=== PATIENT | male | born 1965 | race Asian ===

== ENCOUNTER 2022-07-06 21:41 | Emergency (ER) | payer SELFPAY ==
[~2022-07-06] VITALS: Ht 165.1 cm; Wt 62.1 kg
[2022-07-07] MEDS ORDERED: AMOX TR-K CLV1 EAC1 PO (03:05)
[2022-07-07] MEDS ORDERED: ZITHROMAX250 MG PO (03:05)
[2022-07-07] MEDS ORDERED: METFORMIN HCL500 M2 PO (03:05)
[2022-07-07] MEDS ORDERED: REGLAN10 MG PO (03:05)
[2022-07-07 03:24] VITALS: BP 145/77
== END 2022-07-07 03:25 | disposition home or self-care (01) ==
LOC: ED 21:41
DX: R06.6 Hiccough (principal); I71.20 Thoracic aortic aneurysm, without rupture, unspecified; E11.9 Type 2 diabetes mellitus without complications; E11.65 Type 2 diabetes mellitus with hyperglycemia; J18.9 Pneumonia, unspecified organism
CPT/HCPCS: 36415; 71045; 71260; 74177; 80053; 83036; 83735; 84443; 85025; 85060; 96361; 96375; 99284-25; J2765; J7121; Q9967

== ENCOUNTER 2024-06-05 15:51 | Inpatient (IN) | payer OTHER ==
[~2024-06-05] VITALS: Ht 165.1 cm; Wt 64.0 kg
[~2024-06-05 15:51] MED LIST: AMOX TR-K CLV1 EAC1 PO; METFORMIN HCL500 M2 PO; REGLAN10 MG PO; ZITHROMAX250 MG PO
[2024-06-05 16:14] LABS: PH, VENOUS 7.381 (7.31-7.41)
[2024-06-05] MEDS ORDERED: IBLOOD GLUCOSE TEST STRIP 1 EA TEST XX ONE (16:15)
[2024-06-05 16:16] LABS: BASOPHILS 0.3 % (0-2); EOSINOPHILS 0.6 % (0-6); HEMATOCRIT 45.3 % (35.0-50.0); HEMOGLOBIN 14.5 g/dL (12.0-18.0); LYMPHOCYTES 25.5 % (24-44); MCH 20.3 (27-36); MCV 63.4 fl (81-99); MONOCYTES 7.3 % (0-12); NEUTROPHILS 66.3 % (39-80); PLATELET COUNT 156 K/uL (140-440); RBC 7.14 M/ul (4.3-5.7); RDW 14.5 (10.5-15.0)
[2024-06-05 16:24] LABS: INR 0.95 (0.80-1.30); PROTIME 12.3 Sec (11.2-14.2)
[2024-06-05 16:26] LABS: PARTIAL THROMBOPLASTIN TIME 25.8 Sec (22.9-41.3)
[2024-06-05 16:39] LABS: ALBUMIN 3.7 g/dL (3.4-5.0); ALBUMIN/GLOBULIN RATIO 0.93 (1.1-2.4); ANION GAP 12.3 (7-21); BILIRUBIN, TOTAL 0.4 mg/dL (0.2-1.0); BUN/CREATININE RATIO 12.94 (6.0-28.6); CALCIUM 8.9 mg/dL (8.5-10.1); CREATININE, SERUM 1.39 mg/dL (0.70-1.30); POTASSIUM 4.3 mmol/L (3.5-5.1); PROTEIN, TOTAL 7.7 g/dL (6.4-8.2)
[2024-06-05] MEDS ORDERED: CLOPIDOGREL BISULFATE 75 MG TAB PO ONE (17:15)
[2024-06-05] MEDS ORDERED: Insulin Regular, Human 100 UNIT/ML ML IV ONE (17:15)
[2024-06-05] MEDS ORDERED: ASPIRIN 81 MG CHEW PO ONE (17:15)
[2024-06-05] MEDS ORDERED: SODIUM CHLORIDE 0.9% 500 ML IV PRN (17:15)
[2024-06-05] MEDS ORDERED: DEXTROSE 50% 50 ML SYR IV PRN ×2 (17:45)
[2024-06-05] MEDS ORDERED: ACETAMINOPHEN 325 MG TAB PO PRN (17:45)
[2024-06-05] MEDS ORDERED: GLUCAGON,HUMAN RECOMBINANT 1 MG/ML VIAL SUB-Q PRN (17:45)
[2024-06-05] MEDS ORDERED: IBLOOD GLUCOSE TEST STRIP 1 EA TEST XX PRN (17:45)
[2024-06-05] MEDS ORDERED: DEXTROSE 5% 1,000 ML IV PRN (17:45)
[2024-06-05] MEDS ORDERED: AMOXICILLIN500 MG PO (17:48)
[2024-06-05 18:03] LABS: CHOLESTEROL/HDL RATIO 3.4
[2024-06-05 18:47] VITALS: BP 167/72
--- NOTE | 2024-06-05 18:58 | NUR ---
PT ARRIVES TO MED-SURG ROOM 111 VIA STRETCHER, ESCORTED BY DAPHNE RN, BEDSIDE REPORT RECEIVED. PT TO BED WITH SBA. VSS. TELE #[address] PT ORIENTED TO ROOM.
--- NOTE | 2024-06-05 19:08 | NUR ---
PT EATS TURKEY SANDWICK AND DRINKS APPLE JUICE, TOLERATES THIS WELL.
--- NOTE | 2024-06-05 19:26 | NUR ---
REPORT RECEIVED FROM DAY SHIFT RN. PT LYING IN BED ALERT AND ORIENTED. DENIES NEEDS. WHITE BOARD UPDATED. CALL LIGHT IN REACH. BED ALARM FOR SAFETY.
[2024-06-05 19:55] VITALS: BP 135/65
[2024-06-05 19:56] VITALS: BP 135/65
[2024-06-05] MEDS ORDERED: ATORVASTATIN 40 MG TAB PO SCH ×2 (20:15→22:22)
--- NOTE | 2024-06-05 20:23 | NUR ---
ADMISSION ASSESSMENT COMPLETE. SCHEDULED MEDS ADMIN PER EMAR. PT DENIES PAIN OR NAUSEA. DENIES NUMBNESS OR TINGLING AT THIS TIME. PT DOES REPORT SLIGHT BLURRED VISION IN BOTH EYES. 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 PT DENIES HEADACHE. NO SLURRED SPEECH OR FACIAL DROOP NOTED. TELE #[address] SR. HR 80'S. PT ORIENTED TO ROOM AND NURSE CALL LIGHT. DENIES QUESTIONS OR CONCERNS. BED ALARM FOR SAFETY. CALL LIGHT IN REACH.
[2024-06-05] MEDS ORDERED: INSULIN GLARGINE-YFGN 100 UNIT/ML ML SUB-Q SCH (21:00)
[2024-06-05] MEDS ORDERED: MELATONIN 3 MG TAB PO PRN (21:00)
[2024-06-05] MEDS ORDERED: IBLOOD GLUCOSE TEST STRIP 1 EA TEST VI SCH (21:00)
[2024-06-05] MEDS ORDERED: INSULIN LISPRO 100 UNIT/ML ML SUB-Q SCH (21:00)
--- NOTE | 2024-06-05 23:08 | NUR ---
IN FOR PURLER. PT REPORTS HEADACHE PAIN 5/10. PRN FOR PAIN ADMIN PER EMAR. UP TO BR WITH SBA TO VOID. GAIT WEAK. BACK TO BED, [place] WELL. PT REPORTS CONTINUED BLURRED VISION AND RIGHT SIDE WEAKNESS. FAMILY IN ROOM. NO FURTHER NEEDS. BED ALARM FOR SAFETY. CALL LIGHT IN REACH.
[2024-06-06] VITALS (8 sets, daily range): BP systolic 104–141; BP diastolic 50–77
--- NOTE | 2024-06-06 00:30 | NUR ---
PT RESTING IN BED WITH EYES CLOSED. RESPIRATIONS EVEN. TELE #[address] SR. HR 70'S. BED ALARM IN PLACE. CALL LIGHT IN REACH.
--- NOTE | 2024-06-06 02:20 | NUR ---
PT RESTING WITH EYES CLOSED. AWAKENS EASILY. VS AND I&O OBTAINED. PT DENIES HEADACHE PAIN AT THIS TIME. REPORTS BLURRED VISION AND NUMBNESS IN BILAT HANDS. SLIGHT RIGHT SIDE WEAKNESS NOTED. NO FURTHER NEEDS AT THIS TIME. CALL LIGHT IN REACH.
--- NOTE | 2024-06-06 04:22 | NUR ---
PT RESTING IN BED WITH EYES CLOSED. RESPIRATIONS EVEN. CALL LIGHT IN REACH. BED ALARM FOR SAFETY.
[2024-06-06 05:26] LABS: BASOPHILS 0.3 % (0-2); EOSINOPHILS 2.3 % (0-6); HEMATOCRIT 40.2 % (35.0-50.0); HEMOGLOBIN 13.2 g/dL (12.0-18.0); LYMPHOCYTES 33.8 % (24-44); MCH 20.5 (27-36); MCHC 32.7 g/dl (30-36); MCV 62.6 fl (81-99); NEUTROPHILS 54.6 % (39-80); PLATELET COUNT 156 K/uL (140-440); RBC 6.43 M/ul (4.3-5.7); RDW 14.3 (10.5-15.0)
[2024-06-06 05:44] LABS: ANION GAP 9.2 (7-21); BUN/CREATININE RATIO 18.26 (6.0-28.6); CALCIUM 8.5 mg/dL (8.5-10.1); CREATININE, SERUM 1.15 mg/dL (0.70-1.30); MAGNESIUM 2.1 mg/dL (1.8-2.4); POTASSIUM 4.2 mmol/L (3.5-5.1)
--- NOTE | 2024-06-06 06:17 | NUR ---
PT IN BED RESTING WITH EYES CLOSED. EVEN RESPIRATIONS NOTED. TELE #[address] HR 60'S. BED ALARM FOR SAFETY. CALL LIGHT IN REACH.
--- NOTE | 2024-06-06 06:31 | NUR ---
PT UP TO BR WITH FWW AND SBA TO VOID. SAMPLE EMPTIED BEFORE COLLECTING FOR LAB. BACK TO BED, [place] WELL. PT OFF THE FLOOR FOR MRI.
--- NOTE | 2024-06-06 07:05 | NUR ---
REPORT REC'D FROM RAFAEL CHAN. PT RESTING QUIETLY IN BED, ALERT AND ORIENTED. PT DENIES NEEDS AT THIS TIME. CALL [place] IN REACH, BED IN LOW POSITION AND LOCKED, SIDERAILS UP X2
[2024-06-06] MEDS ORDERED: ASPIRIN 81 MG CHEW PO SCH (08:00)
--- NOTE | 2024-06-06 08:20 | NUR ---
PATIENT IS IN BED RESTING AT THIS TIME, REFUSED GETTING UP FOR BREAKFAST. DISABILITY REPRESENTATIVE CHARTED BLOODSUGAR LEVELS, GOT FRESH ICE WATER, CALL LIGHT WIHT IN REACH AND NOTHING ELSE NEEDED AT THIS TIME.
--- NOTE | 2024-06-06 08:40 | NUR ---
ALERT AND ORIENTED. STATES HE LIVES IN [place], NO STAIRS, WITH HIS . NO DME. HE DRIVES AT [place]EL[place]. 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 DENIES FINANCIAL HARDSHIP. DOES NOT HAVE PCP. CALLED AND SCHEDULD APPOINTMENT WITH [facility] FOR THURSDAY, JUNE 13, 2024 AT 10:00. APPOINTMENT PLACED ON DC INSTRUCTIONS. NO FURTHER CM NEEDS AT THIS TIME. PENDING PT/OT EVAL.
[2024-06-06] MEDS ORDERED: CLOPIDOGREL BISULFATE 75 MG TAB PO SCH (09:00)
--- NOTE | 2024-06-06 09:17 | NUR ---
UR CLINICAL REVIEW: [facility] [place]. PER INFORMATION TECHNOLOGY SECURITY MANAGER MEET INPT FOR ACUTE CVA ODS [facility] INPT 06/05/24 @ 1746 ORDER MATCHES REG CLINICALS FAXED TO [facility] FOR AUTH REVIEW DISCHARGE TO HOME WHEN CLEARED BY PT/OT 06/08/24
--- NOTE | 2024-06-06 10:08 | NUR ---
SPOKE WITH DR. DOZIER. PATIENT WILL BE DISCHARGING WITH NEED FOR HOME HEALTH PT/OT. PATIENT CHOICES GIVEN. [facility]OSEN, REFERRAL FOR HOME HEALTH FAXED.
--- NOTE | 2024-06-06 10:11 | NUR ---
ASSISTED YARDER ENGINEER WITH BUBBLE STUDY. PT TOLERATED AT THIS TIME. SALINE LOCKED IV. PT DENIES ANY NEEDS, YARDER ENGINEER COMPLETING THE EXAM.
--- NOTE | 2024-06-06 10:33 | NUR ---
PATIENT IS IN BED RESTING AT THIS TIME, FAMILY IS IN THE ROOM WITH HIM. NOVELTY DIPPER CHARTED VITALS AND I&O'S, CALL LIGHT WITH IN REACH AND NOTHING ELSE NEEDED AT THIS TIME.
[2024-06-06] MEDS ORDERED: CLOPIDOGREL75 MG PO (11:14)
[2024-06-06] MEDS ORDERED: LIPITOR40 MG PO (11:15)
[2024-06-06] MEDS ORDERED: ASPIRIN81 MG PO (11:15)
[2024-06-06] MEDS ORDERED: AMLODIPINE BESYL5 MG PO (11:16)
[2024-06-06] MEDS ORDERED: VICTOZA 2-0.6 MG/0.1 SUB-Q (11:17)
[2024-06-06] MEDS ORDERED: PHARMACY RENAL DOSE ADJUSTMENT 1 DOSE MISC PO SCH (12:00)
[2024-06-06] MEDS ORDERED: INSULIN LISPRO 100 UNIT/ML ML SUB-Q SCH (12:00)
--- NOTE | 2024-06-06 12:11 | NUR ---
CLINICALS FAXED TO [facility]
--- NOTE | 2024-06-06 13:00 | NUR ---
Stroke rounds: Spoke with primary nurse who had concerns with communication with patient. Patient is from [facility]. After further decision, it was found the patient's first language is Kiswahili, it was verfied this lanuage was offered on the language line. The language line will be used for discharge instructions. Patient is up for discharge.
--- NOTE | 2024-06-06 14:15 | NUR ---
PATIENT IS IN BED AT THIS TIME, FAMILY IS IN ROOM, RN IS GOING OVER PAPER WORK WITH PATIENT. WHARF BUILDER CHARTED VITALS AND I&O'S, CALL LIGHT WITH IN REACH AND NOTHING ELSE NEEDED AT THIS TIME.
[2024-06-06] MEDS ORDERED: INSULIN GLARGINE-YFGN 100 UNIT/ML ML SUB-Q SCH (21:00)
--- NOTE | 2024-06-07 08:13 | EKG ---
[facility] [address] [place], [place] [address] Signed Normal sinus rhythm Anterior infarct , age undetermined Abnormal ECG No previous ECGs available Confirmed by Rush Dozier DO ([id number]) on 06/07/2024 8:13:22 AM Electronically Signed By: RUSH DOZIER DO 06/07/24812 PATIENT NAME: JOSE MILLER Electrocardiogram DATE OF : 69 PHYSICIAN: RUSH DOZIER DO REPORT #: [id number] REPORT IS CONFIDENTIAL AND NOT TO BE RELEASED WITHOUT AUTHORIZATION
== END 2024-06-06 14:30 | disposition home or self-care (01) | DRG 65 ==
LOC: ED 15:51 → MS 17:46 → ED 17:47 → MS 06-06 14:30
PROVIDERS: Family Medicine; ADMIT Student in an Organized Health Care Education/Training Program; ATTEND Student in an Organized Health Care Education/Training Program
DX: I63.522 Cerebral infarction due to unspecified occlusion or stenosis of left anterior cerebral artery (principal); G81.91 Hemiplegia, unspecified affecting right dominant side; N17.9 Acute kidney failure, unspecified; Z66 Do not resuscitate; E11.65 Type 2 diabetes mellitus with hyperglycemia; E86.0 Dehydration; I10 Essential (primary) hypertension; R20.0 Anesthesia of skin; R20.2 Paresthesia of skin; N14.11 Contrast-induced nephropathy; Z79.2 Long term (current) use of antibiotics
CPT/HCPCS: 36415; 70450; 70496; 70498; 70551; 71045; 80048; 80053; 80061; 82010; 82803; 83036; 83735; 84484; 85025; 85060; 85610; 85730; 93005; 93010; 93306; 97162; 97166; A9270; J1815; J7040; Q9967

== ENCOUNTER 2024-06-07 16:21 | Emergency (ER) | payer OTHER ==
[~2024-06-07] VITALS: Ht 165.1 cm; Wt 63.3 kg
[~2024-06-07 16:21] MED LIST changes: +AMLODIPINE BESYL5 MG PO; +AMOXICILLIN500 MG PO; +ASPIRIN81 MG PO; +CLOPIDOGREL75 MG PO; +LIPITOR40 MG PO; +VICTOZA 2-0.6 MG/0.1 SUB-Q
[2024-06-07 16:42] LABS: BASOPHILS 0.3 % (0-2); EOSINOPHILS 0.6 % (0-6); HEMATOCRIT 43.8 % (35.0-50.0); LYMPHOCYTES 19.5 % (24-44); MCH 20.3 (27-36); MCV 63.4 fl (81-99); MONOCYTES 7.9 % (0-12); NEUTROPHILS 71.7 % (39-80); PLATELET COUNT 161 K/uL (140-440); RBC 6.91 M/ul (4.3-5.7); RDW 13.9 (10.5-15.0)
[2024-06-07 16:59] LABS: ALBUMIN 3.4 g/dL (3.4-5.0); ALBUMIN/GLOBULIN RATIO 0.94 (1.1-2.4); ANION GAP 9.5 (7-21); BILIRUBIN, TOTAL 0.4 mg/dL (0.2-1.0); BUN/CREATININE RATIO 17.35 (6.0-28.6); CALCIUM 8.5 mg/dL (8.5-10.1); CREATININE, SERUM 1.21 mg/dL (0.70-1.30); POTASSIUM 4.5 mmol/L (3.5-5.1)
[2024-06-07] MEDS ORDERED: SODIUM CHLORIDE 0.9% 1,000 ML IV ONE (17:45)
[2024-06-07] MEDS ORDERED: Insulin Regular, Human 100 UNIT/ML ML SUB-Q ONE (17:45)
[2024-06-07 19:35] VITALS: BP 134/82
== END 2024-06-07 19:35 | disposition home or self-care (01) ==
LOC: ED 16:21
PROVIDERS: Emergency Medicine
DX: I63.9 Cerebral infarction, unspecified (principal); E11.65 Type 2 diabetes mellitus with hyperglycemia; Z79.01 Long term (current) use of anticoagulants; Z79.02 Long term (current) use of antithrombotics/antiplatelets
CPT/HCPCS: 36415; 70450; 70496; 70498; 80053; 84484; 85025; 85060; 99284-25; J1815; J7030; Q9967

== ENCOUNTER 2024-11-02 13:49 | Emergency (ER) | payer OTHER ==
[~2024-11-02] VITALS: Ht 165.1 cm; Wt 59.2 kg
[2024-11-02] MEDS ORDERED: ATORVASTATIN CA40 MG PO (15:18)
[2024-11-02] MEDS ORDERED: LIRAGLUTID0.6 MG/0.1 SQ (15:18)
[2024-11-02] MEDS ORDERED: NANO 2ND GEN P1 EACH MC (15:18)
[2024-11-02] MEDS ORDERED: OXYCODONE/APAP 5/325 TAB PO ONE (15:45)
[2024-11-02] MEDS ORDERED: ONDANSETRON 4 MG TAB ODT SL ONE (15:45)
[2024-11-02] MEDS ORDERED: LIDOCAINE HCL 4% 1 EACH PATCH TD ONE (15:45)
[2024-11-02 18:20] LABS: BASOPHILS 0.3 % (0.2-1.2); EOSINOPHILS 1.2 % (0.8-7.0); LYMPHOCYTES 12.2 % (21.8-53.1); MCH 19.9 PG (25.7-32.2); MCHC 29.2 g/dL (32.3-36.5); MCV 68.1 fL (79.0-92.2); MONOCYTES 7.8 % (5.3-12.2); NEUTROPHILS 78.1 % (34.0-67.9); RBC 6.95 M/uL (4.63-6.08)
[2024-11-02 18:35] LABS: ALT (SGPT) 48.0 U/L (14-59); AST (SGOT) 27.0 U/L (15-37); GLOMERULAR FILTRATION RATE,EST 82.0 mL/min (>60); PROTEIN, TOTAL 7.7 g/dL (6.4-8.2); UREA NITROGEN 16.0 mg/dL (7-18)
[2024-11-02] MEDS ORDERED: PERCOCET 5-3251 EACH PO (18:36)
[2024-11-02] MEDS ORDERED: OXYCODONE/ACETAMINOPHEN 1 TAB HOME.PACK PO ONE (18:45)
[2024-11-02 20:28] VITALS: BP 137/81
[2024-11-02] MEDS ORDERED: LIDOCAINE PATCH REMOVAL 1 EA TD SCH (21:00)
== END 2024-11-02 20:29 | disposition home or self-care (01) ==
LOC: ED 13:49
PROVIDERS: Emergency Medicine
DX: S22.41XA Multiple fractures of ribs, right side, initial encounter for closed fracture (principal); E11.65 Type 2 diabetes mellitus with hyperglycemia; E78.00 Pure hypercholesterolemia, unspecified; I10 Essential (primary) hypertension; Z79.02 Long term (current) use of antithrombotics/antiplatelets; Z86.73 Personal history of transient ischemic attack (TIA), and cerebral infarction without residual deficits; Z79.82 Long term (current) use of aspirin; Z79.85 Long-term (current) use of injectable non-insulin antidiabetic drugs; Z79.899 Other long term (current) drug therapy; W01.0XXA Fall on same level from slipping, tripping and stumbling without subsequent striking against object, initial encounter
CPT/HCPCS: 36415; 71100; 71260; 80053; 85025; 85060; 99284-25; A9270; Q9967